=== PATIENT | male | born 1965 ===

== ENCOUNTER 2024-12-22 07:44 | Outpatient (CLI) | payer OTHER ==
[2024-12-22 08:12] LABS: Estimated GFR - POC 86.0
== END 2024-12-22 07:45 | disposition home or self-care (01) ==
LOC: CT 07:44
PROVIDERS: ATTEND Family Medicine
DX: R10.32 Left lower quadrant pain (principal); G89.29 Other chronic pain
CPT/HCPCS: 36415; 74178; 82565